=== PATIENT | male | born 1965 | race Caucasian/White ===

== ENCOUNTER 2019-07-17 11:52 | Outpatient (CLI) | payer MEDICAID, SELFPAY ==
--- NOTE | 2019-07-17 12:45 | USCV_ITS ---
Zuhair Ravi Age: 54 Gender: M : 1965 Exam Date: 07/17/2019 12:29 Ordering Phys: Kyra Nice Technologist: Mary Tobias Exam Location: [facility] – [place] Indication: CAROTID STENOSIS WITH LT SIDED PAIN IN NECK TO ARM Risk Factors: Unknown Previous Vascular Surgery: NONE ON CCAS [place] WITH 4 STENTS Right Brachial BP: / Left Brachial BP: / Right Left Velocity (cm/s) Spectral Plaque Velocity (cm/s) Spectral Plaque Syst/Diast Broadening Syst/Diast Broadening 109.20/28.70 Prox CCA 111.00/ 23.20 70.60/ 20.90 Mid CCA 65.30 / 16.10 Hetro 60.60/ 16.50 Distal CCA 60.50 / 12.90 66.80/ 24.90 Hetro Prox ICA 65.30 / 14.50 55.50/ 14.90 Mid ICA 66.90 / 19.30 78.70/ 28.40 Distal ICA 64.50 / 18.50 87.10 Hetro ECA 87.10 1.12 ICA/CCA 1.00 Antegrade Vertebral Antegrade 23.10/ 8.20 cm/s 27.40/ 10.50 cm/s Tri Subclavian Tri 80.90 122.8 0 FINDINGS Minimal to moderate heterogeneous plaques of the right bifurcation. Minimal plaques of the left bifurcation Antegrade flow in the vertebral arteries bilaterally Normal Doppler flow velocities in the external carotid arteries bilaterally CONCLUSIONS Minimal to moderate heterogeneous plaques of the right bifurcation. Minimal plaques of the left bifurcation. No significant stenosis, based on the above findings. Dr Susan Aquino MD FACC (Electronically Signed) Final Date: 18 July 2019 16:53 S
--- NOTE | 2019-07-17 13:30 | USCV_ITS ---
Ravi Moffett Age: 54 Gender: M : 1965 Exam Date: 07/17/2019 12:10 Ordering Phys: Kyra Nice Technologist: Mary Tobias [place]am [place] [facility] [place]ication: PRIOR [place] WITH 4 STENTS BP: / HR: 69 Rhythm: Sinus Technical Quality: Adequate MEASUREMENTS (Male / Female) Normal Values 2D ECHO LV Diastolic Diameter PLAX 4.5 cm 4.2 - 5.9 / 3.9 - 5.3 cm LV Systolic Diameter PLAX 3.0 cm LV Chamber Size 3.5 cm IVS Diastolic Thickness 1.1 cm 0.6 - 1.0 / 0.6 - 0.9 cm IVS Systolic Thickness 1.8 cm LVPW Diastolic Thickness 1.2 cm 0.6 - 1.0 / 0.6 - 0.9 cm LVPW Systolic Thickness 2.1 cm RV Chamber Size 2.6 cm LVOT Diameter 2.0 cm LV Ejection Fraction 2D Teich 61.4 % LV Ejection Fraction MOD 2C 61.6 % LV Ejection Fraction 2C AL 63.2 % LA Diameter 3.8 cm LA Width 3.8 cm LA Height 4.7 cm RA Width 3.0 cm RA Height 4.7 cm Aorta at Sinotubular Diameter 3.4 cm M-MODE LV Diastolic Diameter MM 4.7 cm 4.2 - 5.9 / 3.9 - 5.3 cm LV Systolic Diameter MM 3.5 cm LV Ejection Fraction MM Teich 52.6 % IVS Diastolic Thickness MM 1.1 cm 0.6 - 1.0 / 0.6 - 0.9 cm IVS Systolic Thickness MM 1.5 cm LVPW Diastolic Thickness MM 1.1 cm 0.6 - 1.0 / 0.6 - 0.9 cm LVPW Systolic Thickness MM 1.9 cm RV Diastolic Diameter MM 0.9 cm Aortic Annulus Diameter 3.8 cm LA Ao Ratio MM 1.0 MV E Point Septal Separation 0.7 cm DOPPLER AV Peak Velocity 134.0 cm/s LVOT Peak Velocity 129.0 cm/s AV Area Cont Eq vti 3.2 cm squared AV Area Cont Eq pk 3.1 cm squared MV Area PHT 8.1 cm squared Mitral E to A Ratio 0.9 MV E' Velocity 9.0 cm/s Mitral E to MV E' Ratio 9.5 Mitral E to LV E' Lateral Ratio 7.5 Mitral E to LV E' Septal Ratio 13.2 TR Peak Velocity 125.5 cm/s TR Peak Gradient 6.3 mmHg TR Mean Velocity 92.4 cm/s TR Mean Gradient 3.6 mmHg TR Velocity Time Integral 31.9 cm Right Atrial Pressure 3.0 mmHg Pulmonary Artery Systolic Pressu 9.3 mmHg PV Peak Velocity 80.0 cm/s RV Acceleration Time 0.1 s RV Ejection Time 0.3 s RV AcT/ET 0.3 FINDINGS Left Ventricle Normal left ventricular size and systolic function, EF 56 %. No regional wall motion abnormalities. Mild left ventricular hypertrophy. Grade I/IV diastolic dysfunction (abnormal relaxation filling pattern), normal to mildly elevated filling pressures. Right Ventricle Normal right ventricular size and systolic function. Right Atrium Normal right atrial size. Left Atrium Mildly increased left atrial size. Mitral Valve No gross abnormalities noted Aortic Valve No gross abnormalities Tricuspid Valve Structurally normal tricuspid valve. Pulmonic Valve No gross abnormalities noted Pericardium No pericardial effusion. Aorta Plaque seen in the ascending aorta. CONCLUSIONS Normal left ventricular size and systolic function, EF 56 %. No regional wall motion abnormalities. Mild left ventricular hypertrophy. Type I diastolic dysfunction. Mildly increased left atrial size. There is no pericardial effusion. There are no intracardiac masses. No previous study is available for comparison. Dr Susan Aquino MD FACC (Electronically Signed) Final Date: 17 July 2019 17:00 S
== END 2019-07-17 11:53 | disposition home or self-care (01) ==
LOC: RAD 11:53
PROVIDERS: Family Provider Nurse Practitioner Family; PCP Nurse Practitioner Family; Visit Provider Nurse Practitioner Family
DX: I65.29 Occlusion and stenosis of unspecified carotid artery (principal); I50.20 Unspecified systolic (congestive) heart failure
CPT/HCPCS: 93306; 93880

== ENCOUNTER → 2019-08-26 10:43 | Outpatient (BNVA) | payer MEDICARE, MEDICAID, SELFPAY | PROVIDERS: Family Provider Nurse Practitioner Family; PCP Nurse Practitioner Family; Visit Provider Urology | DX: R39.9 Unspecified symptoms and signs involving the genitourinary system (principal); N20.1 Calculus of ureter; N52.1 Erectile dysfunction due to diseases classified elsewhere; N40.1 Benign prostatic hyperplasia with lower urinary tract symptoms | CPT/HCPCS: 81001 ==

== ENCOUNTER 2022-08-06 18:52 | Inpatient (IN) | payer MEDICARE, MEDICAID, SELFPAY ==
[2022-08-06] VITALS (30 sets, daily range): BP systolic 120–183; BP diastolic 79–124; PULSE 75–109; RESP 13–188; TEMP 36.4; O2SAT 92–100; BMI 27.8; BMI 28.3
--- NOTE | 2022-08-06 18:56 | XRR_ITS ---
PROCEDURE INFORMATION: Exam: XR Chest Exam date and time: 08/06/2022 6:52 PM Age: 57 years old Clinical indication: Left-sided; Prior surgery; Surgery type: Cabg. Loop recorder; Patient HX: C/O left sided chest pain with st elevation. ; Additional info: Cp TECHNIQUE: Imaging protocol: Radiologic exam of the chest. Views: 1 view. COMPARISON: No relevant prior studies available. FINDINGS: Tubes, catheters and devices: Electronic recording device in the left chest wall. Lungs: Unremarkable. No consolidation. Pleural spaces: Unremarkable. No pleural effusion. No pneumothorax. Heart/Mediastinum: Unremarkable. No cardiomegaly. Bones/joints: Sternotomy changes with multiple fractured wires. XR/XR chest 1V portable [id number] IMPRESSION: No acute findings.
--- NOTE | 2022-08-06 18:56 | ECG_ITS ---
[facility] Test Date: 2022-08-06 Pat Name: Ravi Moffett Department: Room: ICU12 Gender: Male Delivery Assistant: : 1965 Requested By: Kamron Parker Order Number: [id number] Isa MD: Lucho Aguilar M.D. Measurements Intervals [place] Rate: 110 P: 52 VT: 172 QRS: 16 QRSD: 94 T: 89 QT: 345 QTc: 469 Interpretive Statements SINUS TACHYCARDIA PROBABLE INFERIOR MYOCARDIAL INFARCTION , OF INDETERMINATE AGE [35 ms Q WAVE IN II/aVF] MODERATE T-WAVE ABNORMALITY, CONSIDER LATERAL ISCHEMIA [-0.1+ mV T-WAVE IN I/aVL/V5/V6] INTERPRETATION BASED ON A DEFAULT AGE OF 40 YEARS No previous ECG available for comparison Electronically Signed On 08-07-2022 17:38:54 MEDICAL RECEPTIONIST by Lucho Aguilar M.D. [id number]
[2022-08-06] MEDS: clopidogrel 300 mg Tablet 600 MG PO (19:01)
--- NOTE | 2022-08-06 19:01 | XACV_ITS ---
Exam Room: .[facility] Ht: 180 cm Wt: 91 kg BSA: 2.15 m2 Gender: Male : 1965 Exam Priority: Routine Procedure(s): Procedure Description: Diagnostic procedure Procedure Description: PCI procedure Procedure Description: Drug Eluting Coronary Stent Procedure Description: PTCA Procedure Description: Miscellaneous Procedure Description: ACT Procedure Description: Coronary Angiography Diagnostic Cath Status: Emergency Diagnostic Findings * INDICATION: 57 year old male with past medical history of congestive heart failure, diabetes, CAD status post CABG in 2020 with CABG x4 has presented to hospital with 2 hours of severe substernal chest pain. He says chest pain is on the left side and radiates to the left arm. After receiving nitro his chest pain has improved somewhat. EKG changes are dynamic. Inferior leads with Q waves with borderline ST elevations and ST T wave changes in the anterior leads V1-V3 were noted. mechanical laboratory technician was activated because of typical, severe, ongoing symptoms and dynamic EKG changes consistent with unstable angina. * Left main artery: Patent. * LAD : Totally occluded in the mid segment. Diagonal artery is patent and has distal diffuse disease. * Left circumflex artery: Proximally has moderate 50 to 60% stenosis. Distal vessel has moderate diffuse disease but is patent. * RCA: Patent, has distal vessel 70-80% stenosis. * SVG to RCA: Occluded. * MORFIN to LAD: MORFIN is patent. At the anastamosis there is a severe 90% stenosis in nome LAD. [place] distal LAD is small caliber diffusely diseased vessel. * Coronary angiography shows right dominance. PCI Status: Emergency PCI Indication: Other Interventional Findings * Procedure details: We engaged MORFIN to LAD with 6 Tamazight SAMMY catheter. IV heparin was administered to maintain ACT above 250 S. 0.014 run-through guidewire was used to cross the stenotic area and was put in distal vessel. A second wire was put in the vessel for more support. We predilated the stenosis with 2.25 x 15 mm semicompliant balloon. This was followed by placement of 2.25 x 18 mm resolute Melinda drug-eluting stent. At this time we performed final angiogram that showed excellent stent expansion, and ETTA-3 flow. Guidewire and guide catheter were removed. Patient left the Cover Inspector in a stable condition and was chest pain-free.. Conclusions 1. Severe MORFIN to LAD anastomosis stenosis s/p successful revascularization with PENELOPE x1. Patient's chest pain resolved.. 2. Severe distal RCA stenosis. Will need staged revascularization as outpatient. Recommendations * Dual anti-platelet therapy with aspirin and Plavix for at least 1 year. * High intensity statin therapy. * Staged outpatient revascularization of distal RCA. * Outpatient cardiology follow-up in 2 to 4 weeks. Interventional RX Recommendation: PCI w/o planned CABG Diagnostic RX Recommendation: PCI w/o planned CABG Anticoagulation: Heparin Pressures Phase:Rest AO : 102 / 61 ( 81 ) @ 2:12:17 PM 122 / 77 ( 99 ) @ 2:12:17 PM 121 / 78 ( 99 ) @ 2:12:17 PM 116 / 78 ( 97 ) @ 2:12:17 PM 124 / 74 ( 96 ) @ 2:12:17 PM 112 / 71 ( 90 ) @ 2:12:17 PM Clinical Evaluation EBL: 5mL-10mL Procedural Details Procedure started. Pre-Procedure Time Out. Identified patient by full name and date of as verbalized by the patient/guarantor. Does the consent match the physician's order: N/A Emergent; Informed Consent not obtained due to time critical life threat. Accurate & Complete Informed Consent: N/A Emergent; Informed Consent not obtained due to time critical life threat. Inpatient/Outpatient History & Physical on Chart: N/A Emergent; Informed Consent not obtained due to time critical life threat. If H&P is completed, is and addenduem needed: N/A Emergent; Informed Consent not obtained due to time critical life threat; If yes, is the addendum complete: N/A Emergent; Informed Consent not obtained due to time critical life threat. Visualize and Verify Site with Patient/Guarantor: N/A. Relevant Radiology Images available: N/A. Pre-op teaching completed and patient verbalized understanding. The risks, benefits, and alternatives of sedation and/or procedure were discussed by physician. The patient agrees to continue. [facility] Clinical Fraility Score: 3: Managing Well. Cover Inspector Indications: ACS <= 24 hours. Chest Pain Symptom Assessment: Typical Angina Symptoms. Current diagnosis: NSTEMI. PERRLA. Strong, equal hand director of quality improvement bilaterally. Lungs clear x 5 lobes. IV Site on Arrival: 18 gauge in the right anticubital. IV Site on Arrival: 18 gauge in the left anticubital. IV Fluids: 0.9% NaCl at KVO. 0 mL infused prior to label printer. Pre Procedural Pulses: bilateral posterior tibial was 2+. Oxygen started at 2liters/min via nasal canula. right groin was prepped with chloroprep then draped in the usual sterile fashion. left groin was prepped with chloroprep then draped in the usual sterile fashion. Baseline sample Acquired. HR: 95 BPM. Physician notified. Physician arrived. Physician scrubbed in. Immediate Pre-Procedure Time Out. Correct Patient: Yes; Correct Procedure: Yes; Correct Site: Yes; Correct Patient Position: Yes; Correct Supplies: Yes; Dried Flammable Prep: Yes; Blood Products Available: N/A;. Lidocaine 1% infiltrated to the right groin. Arterial access obtained with micropuncture set. A 5 nauruan JL4 catheter in over wire. Multiple views taken of left coronary artery. Catheter removed over the exchange wire. A 5 nauruan JR4 catheter in over wire. Multiple views taken of right coronary artery. SVG's to Diaganol visualized and patent. SVG to RCA occluded. Catheter removed over the exchange wire. A 5 nauruan IM catheter in over wire. Admit Source: Emergency department. MORFIN to LAD visualized. Catheter removed over the exchange wire. Physician review of cine films. PCI Indication: NSTE. A 5 nauruan JR4 catheter in over wire. Catheter removed over the exchange wire. 6 nauruan IM guide catheter was inserted over the wire. Exchange wire removed. Runthrough guidewire was advanced through the guide catheter to lesion in the MORFIN. 2nd Runthrough guidewire was advanced through the guide catheter to lesion in the MORFIN to mid LAD. Balloon inserted to lesion in the mid LAD. Inflation number : 1 A AB TREK 2.25X15 RX BALLOON was prepped and advanced across the MORFIN -> Mid LAD , then inflated to 8 MAGALY for 0:15 seconds. Inflation number: 2 The AB TREK 2.25X15 RX BALLOON was reinflated across the MORFIN -> Mid LAD, to 8 MAGALY for 0:05 seconds. Results checked. Balloon out. Stent inserted to lesion in the mid LAD. Inflation Number : 3 A CHAAPRRO R MELINDA 2.25X18 PENELOPE -Lot Number# [id number] Exp 11/22/2023 was prepped and advanced across the MORFIN -> Mid LAD. The stent was deployed at 12 MAGALY for 0:16 seconds. Stent balloon out over wire. Results checked. 1st Runthrough wire removed. 2nd Runthrough wire removed. Results checked. Results checked. Guide catheter out. ACT drawn. Results 238 seconds. Therapeutic limits - pre-heparin administration 90-150 seconds and monitoring heparin during a vascular procedure >250 seconds. A Right femoral angiogram was performed to determine safe placement of closure device. A Suture was successful obtaining hemostatsis at the Right Femoral artery insertion site. Sheath(s) sutured into position with 2-0 silk and sterile 4x4's and Op-site applied over the site. No oozing or signs and symptoms of hematoma noted. Post Procedure: Pulses reassessed and unchanged. PERRLA. Strong, equal hand director of quality improvement bilaterally. No VTE prophylaxis required. Medication's Wasted: Nitro = 49.8 mg. Medication's Wasted: Other = Versed 1 mg. Medication's Wasted: Lidocaine 1% = 1 mL. Medication's Wasted: Other = Fentanyl 50 mcg. Total IV fluids: 68 mL. Post-op diagnosis: MORFIN to Mid LAD obstruction. Complications: none. Estimated blood loss: 5mL-10mL. Responsiveness - Normal response to verbal stimuli; alert and oriented, PERRLA. Airway - Unaffected, no intervention required; spontaneous ventilation. Circulation: W/N/L, pulses unchanged. Nausea/Vomiting: No. Procedure completed. Patient transferred by bed to ICU. Vital chart was stopped. Access Site Site: Right Femoral artery Sheath Size: 6 Fr Hemostasis Method: Suture Hemostasis Success: Successful Procedure Medications Start: 7:26 PM Stop: 7:26 PM Medication: Fentanyl Amount: 50 mcg Route: I.V. Start: 7:26 PM Stop: 7:26 PM Medication: Versed Amount: 1 mg Route: I.V. Start: 7:27 PM Stop: 7:27 PM Medication: Versed Amount: 1 mg Route: I.V. Start: 7:27 PM Stop: 7:27 PM Medication: Fentanyl Amount: 50 mcg Route: I.V. Start: 7:39 PM Stop: 7:39 PM Medication: Versed Amount: 1 mg Route: I.V. Start: 7:48 PM Stop: 7:48 PM Medication: Versed Amount: 1 mg Route: I.V. Start: 7:49 PM Stop: 7:49 PM Medication: Heparin Amount: 5000 units Route: I.V. Start: 8:03 PM Stop: 8:03 PM Medication: Fentanyl Amount: 50 mcg Route: I.V. Start: 8:03 PM Stop: 8:03 PM Medication: Versed Amount: 1 mg Route: I.V. Start: 8:04 PM Stop: 8:04 PM Medication: Nitrogylcerin Amount: 200 mcg Route: I.C. Start: 8:08 PM Stop: 8:08 PM Medication: Heparin Amount: 1000 units Route: I.V. I, the attending physician, have reviewed and verified all procedure medications. Yes, all medications given per verbal order Report Signatures Finalized by Lucho Aguilar MD on 08/12/2022 02:33 PM
[2022-08-06] MEDS: heparin 5,000 unit/mL INJ 1 mL 4000 UNIT IVP (19:04)
--- NOTE | 2022-08-06 19:04 | ED_ITS ---
HPI - Chest Pain General: Chief Complaint: Chest Pain Stated Complaint: STEMI Time Seen by Provider: 08/06/22 18:56 Source: patient and EMS Mode of arrival: EMS Limitations: no limitations History of Present Illness: 57-year-old male who has extensive history of cardiac disease states that 2 hours ago he start having chest pains or pressure type pain in the center of his chest been a 10 out of 10 and EMS arrived gave him nitro his pain is now down to a 2 out of 10 he received aspirin in route as well. STEMI alert was activated by EMS for concern of a STEMI on his EKG. Associated symptoms: Deny abdominal pain, dyspnea, fever(s), nausea or vomiting Review of Systems Const: Denies: fever(s), chills, body aches or change in appetite Eyes: Denies: blurry vision or eye discomfort ENMT: Denies: throat pain or dental pain Card: Reports: chest pain Resp: Denies: dyspnea GI: Denies: abdominal pain, nausea, vomiting or diarrhea : Denies: dysuria Musc: Denies: neck pain or back pain Skin/Breast: Denies: rash Neuro: Denies: headache(s) Psych: Denies: depression Griffin/Lymph: Denies: easy bruising All/Imm: Denies: urticaria PFSH ED PFSH: Medical History (Updated 08/06/22 @ 19:06 by Kamron Parker MD) BPH NOS w ur obs/LUTS CHF (congestive heart failure), NYHA class I LVEF 56%, grade 1 diastolic dysfunction 07/18/2019 Diabetes Erectile dysfunction due to diseases classified elsewhere Hypercholesterolemia Sleep apnea Surgical History H/O elbow surgery H/O hernia repair Social History Smoking and tobacco status: former smoker Alcohol intake: never Marital status: Single Current occupational status: employed Physical Exam Const: COMMON NORMALS: patient oriented x3 GENERAL APPEARANCE: ill appearing HENMT: COMMON NORMALS: normocephalic and atraumatic HEAD & SCALP: normocephalic and atraumatic Eye: COMMON NORMALS: Equal, round and reactive pupils present and EOMs intact bilaterally PUPIL: Yes Equal, round and reactive pupils present Neck/C-Spine: COMMON NORMALS: full ROM and supple Chest: COMMONS NORMALS: normal inspection of the chest and normal palpation of entire chest wall Resp: COMMON NORMALS: normal respiratory effort, No retractions, No use of accessory muscles and clear to auscultation bilaterally AUSCULTATION: clear to auscultation bilaterally Cardio: COMMON NORMALS: regular rate, regular rhythm and No murmurs present (Cardio) RATE: regular rate RHYTHM: regular rhythm GI: COMMON NORMALS: Normal to inspection, nondistended, normoactive bowel sounds present, Soft to palpation, non-tender and no masses PALPATION: Yes Soft to palpation Extremity: COMMON NORMALS: normal to inspection and full ROM Neuro: COMMON NORMALS: patient oriented x3, moves all extremities and no focal motor deficits Psych: COMMON NORMALS: mental status grossly normal, Normal thought process present and cooperative THOUGHT PROCESS: Normal thought process present Skin: COMMON NORMALS: no rashes or lesions noted and no wounds GENERAL SKIN EXAM: no rashes or lesions noted Course Vital Signs: Vital signs: Vital Signs Pulse Rate 109 H 08/06/22 18:53 Respiratory Rate 16 08/06/22 18:53 Blood Pressure 160/124 08/06/22 18:53 Pulse Oximetry 100 08/06/22 18:53 Oxygen Delivery Me thod 08/06/22 18:53 MDM - Chest Pain Medical Decision Making Patient presents here with chest pain EKG findings concerning for possible STEMI Dr. Fisher is reviewed the EKG and will take him to the [facility] at this point we will give patient heparin and Plavix his pain is resolved currently. Lab Data 08/06/22 18:54 08/06/22 18:54 Critical Care Time Critical Care Time: Critical Care Time: Yes Total Critical Care Time: 35 Attestation: The high probability of a clinically significant, sudden or life threatening deterioration of the patient's cv system(s) required my full and direct attention, intervention and personal management. The critical care time is as shown. This time is in addition to time spent performing any reported procedures but includes the following: [x] Data and vital sign review and interpretation [x] Patient assessment, examination and intervention [x] Documentation [x] Medication orders and management Discharge Plan Discharge Patient Disposition: Admitted As Inpatient Clinical Impression: ST elevation myocardial infarction (STEMI) Condition: Stable Prescriptions: No Action sildenafil 100 mg tablet 100 mg PO DAILY PRN (Reason: sexual activity) Qty: 20 12RF Rx Instructions: 1 hour before intercourse on empty stomach. NO NITROGLYCERIN! zonisamide [Zonegran] 100 mg capsule 100 mg PO .4 Rx Instructions: 4 daily with supper montelukast 10 mg tablet 10 mg PO DAILY amlodipine 5 mg tablet 5 mg PO DAILY Proair Digihaler 90 mcg/actuation aero powdr breath act w/sensor 2 inh INHALATION QID clonidine HCl 0.1 mg tablet 0.1 mg PO BID 90 Days Qty: 180 3RF atorvastatin 40 mg tablet 40 mg PO .HS 90 Days Qty: 90 3RF carvedilol 25 mg tablet See Rx Instructions .ROUTE .COMPLEX Qty: 180 2RF Dose Instruction: TAKE 1 TABLET BY MOUTH TWICE DAILY Rx Instructions: TAKE 1 TABLET BY MOUTH TWICE DAILY valsartan-hydrochlorothiazide 160-25 mg tablet 1.5 tab PO DAILY Qty: 135 0RF tamsulosin 0.4 mg capsule See Rx Instructions .ROUTE .COMPLEX Qty: 30 2RF Dose Instruction: TAKE 1 CAPSULE BY MOUTH EVERY DAY Rx Instructions: TAKE 1 CAPSULE BY MOUTH EVERY DAY Referrals: Arina Joseph FNP [Primary Care Provider] - Coding Level of Care Code ED Bioinformatics Assistant for Traci Jones
[2022-08-06 19:11] LABS: Basophils # 0.1 10^3/uL (0.0-0.1); Basophils % 0.6 %; Eosinophils # 0.3 10^3/uL (0.0-0.8); Eosinophils % 4.2 %; Hematocrit 47.4 % (42.0-52.0); Hemoglobin 15.9 g/dL (11.7-16.6); Lymphocytes # 1.6 10^3/uL (0.8-4.8); Lymphocytes % 20.2 %; Mean Corpuscular HGB Conc 33.5 g/dL (30.0-36.0); Mean Corpuscular Hemoglobin 29.2 pg (28.0-34.0); Mean Corpuscular Volume 87.1 fl (80-94); Mean Platelet Volume 10.2 fL (7.4-10.4); Monocytes # 0.5 10^3/uL (0.2-0.9); Monocytes % 6.2 %; Neutrophils # 5.31 10^3/uL (1.8-7.7); Neutrophils % 68.2 %; Nucleated Red Blood Cells % 0 %; Platelet Count 194 10^3/cmm (130-400); Red Blood Count 5.44 10^6/uL (4.1-5.3); Red Cell Distribution Width 13.8 % (12.1-15.1); White Blood Count 7.8 10^3/uL (4.0-10.0)
--- NOTE | 2022-08-06 19:13 | P.HP_ITS ---
Providers/Chief Complaint Admitting Physician: Lucho Aguilar MD/ Cardiology Primary Care Provider: CARLOZ Mcginnis Chief Complaint: Chest pain History of Present Illness Ravi Moffett is a 57 year old male with past medical history of congestive heart failure, diabetes, CAD status post CABG in 2020 with CABG x4 has presented to hospital with 2 hours of severe substernal chest pain. He says chest pain is on the left side and radiates to the left arm. After receiving nitro his chest pain has improved somewhat. EKG changes are dynamic. Inferior leads with Q waves with borderline ST elevations and ST T wave changes in the anterior leads V1-V3 were noted. soap slabber was activated because of typical, severe, ongoing symptoms and dynamic EKG changes Review of Systems Narrative: CONSTITUTIONAL: No fever chills weight loss or gain or night sweats. [] HEENT: Normocephalic, atraumatic.[] RESPIRATORY: No cough, sputum, hemoptysis or wheezing.[] CARDIOVASCULAR: Has chest pain GI: no nausea vomiting diarrhea. [] PERFORATOR: No numbness, tingling, weakness or loss of function in any part of the body. [] MUSCULOSKELETAL: No knee or joint pain or rashes. [] Medications/Allergies Home Medications Medication Instructions Recorded Confirmed Last Taken Type albuterol sulfate 90 mcg/actuation 2 inh inhalation QID 06/22/19 08/26/19 Unknown History breath activated powder inhaler,sensor (Proair Digihaler) amlodipine 5 mg tablet 5 mg PO DAILY 06/22/19 08/26/19 Unknown History montelukast 10 mg tablet 10 mg PO DAILY 06/22/19 08/27/19 Unknown History zonisamide 100 mg capsule 100 mg PO .4 06/22/19 08/27/19 Unknown History (Zonegran) sildenafil 100 mg tablet 100 mg PO DAILY PRN sexual 08/26/19 08/27/19 Unknown Rx activity #20 tabs atorvastatin 40 mg tablet 40 mg PO .HS 90 days #90 tabs 10/01/19 Unknown Rx clonidine HCl 0.1 mg tablet 0.1 mg PO BID 90 days #180 tabs 10/01/19 Unknown Rx carvedilol 25 mg tablet See Rx Instructions .Route 05/23/20 Unknown Rx .COMPLEX #180 tabs valsartan 160 1.5 tab PO DAILY #135 tabs 06/20/20 Unknown Rx mg-hydrochlorothiazide 25 mg tablet tamsulosin 0.4 mg capsule See Rx Instructions .Route 12/21/20 Unknown Rx .COMPLEX #30 caps Allergies Allergy/AdvReac Type Severity Reaction Status Date / Time ciprofloxacin [From Cipro] Allergy nausea Verified 08/06/22 18:57 hydroxyzine Allergy rash Verified 08/06/22 18:57 propoxyphene [From Darvon] Allergy hives Verified 08/06/22 18:57 PFSH Acute PFSH: Medical History (Updated 08/06/22 @ 19:21 by Lucho Aguilar M.D) BPH NOS w ur obs/LUTS CHF (congestive heart failure), NYHA class I LVEF 56%, grade 1 diastolic dysfunction 07/18/2019 Diabetes Erectile dysfunction due to diseases classified elsewhere Hypercholesterolemia Sleep apnea Surgical History H/O elbow surgery H/O hernia repair Social History Smoking and tobacco status: former smoker Alcohol intake: never Marital status: Single Current occupational status: employed Vitals/I&O/Wt Last Vital Signs Pulse 109 H 08/06/22 18:53 Resp 16 08/06/22 18:53 BP 160/124 08/06/22 18:53 Pulse Ox 100 08/06/22 18:53 O2 Del Method 08/06/22 18:53 Weight last 48 hrs Weight 200 lb Physical Exam Narrative: GENERAL: Patient is alert, awake and oriented x3. [] NECK: No jugular vein distension. [] HEENT: No cyanosis. No icterus. No pallor. [] HEART: Regular S1 and S2. No murmur, rub or gallop. [] LUNGS: Clear to auscultate bilaterally. [] CENTRAL NERVOUS SYSTEM: Grossly nonfocal. [] EXTREMITIES: Lower extremities with no edema. Left foot has redness and swelling on the dorsum. 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 Also has dynamic EKG changes. Plan for emergent cardiac catheterization with possible PCI. Risks and benefits of the procedure were discussed with the patient. Continue aspirin and Plavix. We will order echocardiogram. We will consult medicine team for management of medical issues/diabetes and foot swelling. Attestations Medical Necessity Statement*: Care expected to cross 2 midnights. Patient has typical chest pain and dynamic EKG changes and features consistent with high risk NSTEMI. Coding Level of Care Code Acute Code for [facility] Diagnoses NSTEMI (non-ST elevated myocardial infarction) I21.4 Coronary artery disease I25.10 Left-sided cerebrovascular accident (CVA) I63.9 Status post ablation of ventricular arrhythmia Z98.890; Z86.79 CHF (congestive heart failure), NYHA class I I50.22 Congestive heart failure chronicity: chronic Congestive heart failure type: systolic Diabetes E11.9 Diabetes mellitus complication status: without complication Diabetes mellitus retirement insulin use: without retirement use Diabetes mellitus type: type 2 Hypercholesterolemia E78.00
[2022-08-06 19:17] LABS: D Dimer 0.42 ug/mIFEU (0-0.59)
[2022-08-06 19:23] LABS: Troponin(5th) Baseline 19 ng/L (0-15)
[2022-08-06 19:32] LABS: Alanine Aminotransferase 26 U/L (0-41); Albumin Level 4.4 g/dL (3.5-5.2); Alkaline Phosphatase 75 U/L (40-130); Anion Gap 17.6 (5-19); Aspartate Amino Transferase 28 U/L (0-40); Blood Urea Nitrogen 9 mg/dL (6-20); Calcium 9.5 mg/dL (8.5-10.5); Carbon Dioxide 25 mmol/L (22-29); Chloride 93 mmol/L (98-107); Creatinine Clr Calc Pharmacy 79.2042; Globulin 2.7 g/dL (1.3-4.6); Glomerular Filtration Rate 62.6 mL/min (90-130); Glucose 196 mg/dL (65-115); Lipase 42 U/L (13-60); NT Pro B Type Natriuretic Pept 248 pg/mL (0-125); Osmolality Calculated 278 mOsm/kg (285-295); Potassium 3.6 mmol/L (3.5-5.1); Sodium 132 mmol/L (136-145); Total Bilirubin 0.6 mg/dL (0.15-1.2); Total Protein 7.1 g/dL (6.6-8.7)
--- NOTE | 2022-08-06 20:31 | USCV_ITS ---
Ravi Moffett Age: 57 Gender: M : 1965 Exam Date: 08/06/2022 20:52 Ordering Phys: Lucho Aguilar M.D ([email or web address]) Technologist: VIRY Exam Location: [facility] – [place] Indication: chest pain tonight. post ME. post cardiac cath tonight. BP: 133 / 79 HR: 89 Rhythm: Sinus Technical Quality: Adequate MEASUREMENTS (Male / Female) Normal Values 2D ECHO LV Diastolic Diameter PLAX 3.7 cm 4.2 - 5.9 / 3.9 - 5.3 cm LV Systolic Diameter PLAX 2.3 cm IVS Diastolic Thickness 1.5 cm 0.6 - 1.0 / 0.6 - 0.9 cm IVS Systolic Thickness 2.6 cm LVPW Diastolic Thickness 1.1 cm 0.6 - 1.0 / 0.6 - 0.9 cm LVPW Systolic Thickness 1.6 cm LVOT Diameter 1.8 cm LV Ejection Fraction 2D Teich 70.2 % LV Ejection Fraction MOD 2C 56.7 % LV Ejection Fraction 2C AL 57.8 % LA Diameter 3.7 cm LA Width 3.7 cm LA Height 5.4 cm RA Width 2.7 cm RA Height 5.1 cm Aorta at Sinotubular Diameter 3.4 cm IVC Diameter 1.4 cm M-MODE Aortic Annulus Diameter 3.0 cm LA Ao Ratio MM 1.3 MV E Point Septal Separation 0.6 cm DOPPLER AV Peak Velocity 109.0 cm/s LVOT Peak Velocity 86.0 cm/s AV Area Cont Eq vti 1.7 cm squared AV Area Cont Eq pk 2.0 cm squared MV Area PHT 5.0 cm squared Mitral E to A Ratio 0.7 MV E' Velocity 50.0 cm/s TV Peak E Velocity 60.0 cm/s PV Peak Velocity 101.0 cm/s RV Acceleration Time 0.1 s RV Ejection Time 0.3 s RV AcT/ET 0.4 FINDINGS Left Ventricle Left ventricle is normal in size. LV systolic function is normal with EF of 55-60%. No regional wall motion abnormalities are seen. Grade 1 diastolic dysfunction Right Ventricle Normal in size and function Right Atrium Normal in size Left Atrium Normal in size Mitral Valve Structurally normal mitral valve. No significant regurgitation. Aortic Valve Grossly normal. No significant stenosis or regurgitation. Tricuspid Valve Trace tricuspid regurgitation. Insufficient TR jet to calculate RVSP Pulmonic Valve Not well visualized Pericardium Normal Aorta Normal in size IVC Appears to be normal CONCLUSIONS LV systolic function is normal with EF of 55-60% Grade 1 diastolic dysfunction Trace tricuspid regurgitation Compared to prior echocardiogram from 2019, no significant changes are noted. Lucho Aguilar MD (Electronically Signed) Final Date: 07 August 2022 09:11 S
--- NOTE | 2022-08-06 20:47 | P.CONIM_ITS ---
Providers/Reason For Consult Consulting Physician/Specialty*: Dr. Harden/internal medicine Reason for Consult*: Medical comorbidities Requesting Physician: Dr. Fisher Attending Physician: Amol Hadren MD Primary Care Provider: CARLOZ Mcginnis History of Present Illness History of Present Illness Ravi Moffett is a 57 year old male with past medical history of type 2 diabetes mellitus on weekly Ozempic with last dose on Friday 08/04, CAD post CABG, left-sided CVA, NYHA class I diastolic CHF presented to the ER today with ongoing chest pain for 2 hours and was taken to Extrusion Die Coordinator with concerns for dynamic changes on the EKG. Patient underwent PCI to LAD(complete cath report not available to me currently). Hospital services consulted for medical comorbidities along with redness and pain on left great toe and second toe. Patient states pain in the foot started couple of hours prior to chest pain today. Denies of having any trauma or pain in the last few days. Denies any similar complaints in the past. Patient seen in the ICU, lying comfortably with chest pain 2/10 with heart rate at 82 bpm and blood pressure 150/90 saturating well on room air. Review of Systems General: Reports: 10 or more systems reviewed and unremarkable except in HPI and below Const: Denies: fever(s), chills, body aches, change in appetite, change in weight, malaise, night sweats, diaphoresis, change in sleep pattern, daytime sleepiness or snoring Eyes: Denies: change in vision, blurry vision, photophobia, eye discomfort or eye discharge ENMT: Denies: throat pain, enlarged tonsils, hoarseness, mouth pain, oral sores, dry mouth, tinnitus, nasal congestion or post nasal drip Card: Denies: chest pain, palpitations, irregular heart rhythm, edema, swelling of feet/ankles, lightheadedness, syncope, pre-syncope, dyspnea on exertion, orthopnea, leg pain with exertion or acrocyanosis Resp: Denies: dyspnea, productive cough, non-productive cough, wheezing, stridor, pain on inspiration, change in phlegm color, hemoptysis or chest congestion GI: Denies: abdominal pain, nausea, vomiting, hematemesis, coffee ground emesis, dysphagia, heartburn, diarrhea, constipation, bloating, GI cramping, change in bowel habits, pain on defecation, hematochezia or melena : Denies: flank pain, difficulty urinating, dysuria, urinary frequency, urinary urgency, urinary hesitancy, urinary dribbling, difficulty starting urination, change in urine stream, nocturia or hematuria Musc: Denies: neck pain, back pain, extremity pain, joint pain, joint swelling, joint redness, joint stiffness or limited range of motion Neuro: Denies: headache(s), numbness in extremities, weakness in extremities, sensory changes, lack of coordination, difficulty walking, frequent falls, dizziness, vertigo, confusion, Slurred speech present, difficulty communicating thoughts or seizure-like activity Psych: Denies: anxiety, depression, mood swings, panic attacks, hopelessness or irritability Endo: Denies: polyuria, polydipsia, tired all the time, cold intolerance, excessive sweating, flushing or heat intolerance Griffin/Lymph: Denies: easy bruising or easy bleeding All/Imm: Denies: tongue swelling, facial swelling or acute wheezing Medications/Allergies Home Medications Medication Instructions Recorded Confirmed Last Taken Type albuterol sulfate 90 mcg/actuation 2 inh inhalation QID 06/22/19 08/26/19 Unknown History breath activated powder inhaler,sensor (Proair Digihaler) amlodipine 5 mg tablet 5 mg PO DAILY 06/22/19 08/26/19 Unknown History montelukast 10 mg tablet 10 mg PO DAILY 06/22/19 08/27/19 Unknown History zonisamide 100 mg capsule 100 mg PO .4 06/22/19 08/27/19 Unknown History (Zonegran) sildenafil 100 mg tablet 100 mg PO DAILY PRN sexual 08/26/19 08/27/19 Unknown Rx activity #20 tabs atorvastatin 40 mg tablet 40 mg PO .HS 90 days #90 tabs 10/01/19 Unknown Rx clonidine HCl 0.1 mg tablet 0.1 mg PO BID 90 days #180 tabs 10/01/19 Unknown Rx carvedilol 25 mg tablet See Rx Instructions .Route 05/23/20 Unknown Rx .COMPLEX #180 tabs valsartan 160 1.5 tab PO DAILY #135 tabs 06/20/20 Unknown Rx mg-hydrochlorothiazide 25 mg tablet tamsulosin 0.4 mg capsule See Rx Instructions .Route 12/21/20 Unknown Rx .COMPLEX #30 caps Allergies Allergy/AdvReac Type Severity Reaction Status Date / Time ciprofloxacin [From Cipro] Allergy nausea Verified 08/06/22 18:57 hydroxyzine Allergy rash Verified 08/06/22 18:57 propoxyphene [From Darvon] Allergy hives Verified 08/06/22 18:57 PFSH Acute PFSH: Medical History (Updated 08/06/22 @ 23:55 by Amol Harden MD) Arthritis or polyarthritis, rheumatoid BPH NOS w ur obs/LUTS CHF (congestive heart failure), NYHA class I LVEF 56%, grade 1 diastolic dysfunction 07/18/2019 Diabetes Erectile dysfunction due to diseases classified elsewhere Hypercholesterolemia Nocturia Sleep apnea Surgical History (Updated 08/06/22 @ 23:55 by Amol Harden MD) H/O elbow surgery H/O hernia repair S/P alvin Social History Smoking and tobacco status: former smoker Alcohol intake: never Marital status: Single Current occupational status: employed Vitals/I&O/Wt Last Vital Signs Pulse 102 H 08/06/22 19:10 Resp 16 08/06/22 19:00 BP 154/102 08/06/22 19:10 Pulse Ox 98 08/06/22 19:10 O2 Del Method 08/06/22 19:10 Weight last 48 hrs Weight 90.718 kg Physical Exam Narrative: General: No acute distress, AO x3 HEENT: PERRLA, pupils bilaterally equal and reactive Chest: Normal vesicular breath sounds, no added sounds, equal good air entry bilaterally CVS: S1-S2 regular, no murmurs, no tachycardia, no gallops, no rubs Abdomen: Soft, nontender, no organomegaly, bowel sounds present Neuro: No focal deficits, no facial deformity, AO x3, power 5/5 in all limbs Extremities: Bilateral pulses feeble but dopplerable, feet warm, tenderness and redness at base of great toe and second toe on left feet, no open wounds or blisters Data 08/06/22 18:54 08/06/22 18:54 A&P Assessment and plan (1) NSTEMI (non-ST elevated myocardial infarction): Post PCI. Extrusion Die Coordinator report not available currently. Currently chest pain-free. Continue aspirin, statin, Plavix, home dose of beta-aldo. Echocardiogram has been ordered. Treatment as per primary team. (2) Coronary artery disease: Post CABG (3) CHF (congestive heart failure), NYHA class I: Last echocardiogram shows EF of 55% with grade 1 diastolic dysfunction. We will follow-up repeat echocardiogram. Currently in no exacerbation. Qualifiers: Congestive heart failure type: systolic Congestive heart failure chronicity: chronic Qualified Code(s): I50.22 - Chronic systolic (congestive) heart failure (4) Hypercholesterolemia: Check lipid panel. Continue home dose of statin. (5) Diabetes: Takes Ozempic at home. Last dose on 08/04. Check A1c. Low-dose insulin sliding scale before meals and at bedtime. Carb consistent cardiac diet. 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 Can be secondary to gout but given history of CAD we will have to rule out PAD and ischemia. Arterial duplex. Frequent neurovascular checks. Check uric acid. For now empirically start patient on Zosyn day very low likelihood of cellulitis. Can discontinue antibiotics within next 24 hours if patient remains hemodynamically stable, afebrile without leukocytosis. Plan Hypertension: Goal blood pressure less than 140/90 mmHg. Continue with home dose of carvedilol, clonidine. Depending on the BMP can restart home dose of valsartan within next 24 hours. Care discussed in detail with RN at bedside. Thank you for involving us in care of Mr. Moffett. We will continue to follow. Consult Attestations Medical Necessity Statement: As per primary team. and Moderate Time for a total of 60 minutes, includes reviewing past or interval history, examining/interviewing patient, placing orders, counseling patient/family/other support, updating patient/family/other support, discussing plan of care with staff, communicating with other healthcare providers, documenting encounter and coordinating care Diagnoses NSTEMI (non-ST elevated myocardial infarction) I21.4 Coronary artery disease I25.10 CHF (congestive heart failure), NYHA class I I50.22 Congestive heart failure type: systolic Congestive heart failure chronicity: chronic Hypercholesterolemia E78.00 Diabetes E11.9 Diabetes mellitus type: type 2 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
--- NOTE | 2022-08-06 20:54 | USCV_ITS ---
Ravi Moffett Age: 57 Gender: M : 1965 Exam Date: 08/06/2022 21:49 Ordering Phys: Amol Harden MD Technologist: VIRY Exam Location: [facility] – [place] Indication: prior LE DVTs, last 2018. No history of pulmonary embolus per patient. HISTORY: prior LE DVTs, last 2018. No history of pulmonary embolus per patient. PROCEDURES: Venous duplex imaging was performed in bilateral lower extremities. FINDINGS: Normal 2-D Doppler and augmentation and compressibility throughout the lower extremity venous structures. Additional imaging through the proximal calf veins also reveals no thrombus. Limited evaluation of the greater saphenous vein is patent with no thrombus. CONCLUSIONS No DVT bilateral lower extremities. Dr. Elsy Valladares DO (Electronically Signed) Final Date: 07 August 2022 07:47 S
[2022-08-06 21:27] LABS: Glucose Point of Care 214 mg/dL (70-110)
[2022-08-06] MEDS: insulin lispro 100 unit/1 mL SUBCUT (21:30)
[2022-08-06] MEDS: sodium chloride 0.9% 1,000 ML 100 ML IV (21:31)
[2022-08-06] MEDS: metoprolol tartrate 50 mg Tablet PO (21:31)
[2022-08-06] MEDS: atorvastatin 40 mg Tablet 80 MG PO (21:31)
[2022-08-06] MEDS: piperacillin-tazobactam 3.375 GM in sodium chloride 0.9% (plus) 50 ML IV (22:55)
[2022-08-06 23:06] LABS: Troponin 5 2HR 18.08 ng/L (0-15)
[2022-08-06 23:13] LABS: Troponin 5 2HR Delta -0.92 ABS# (0-10)
[2022-08-06 23:36] LABS: Thyroid Stimulating Hormone 1.54 uIU/mL (0.27-4.20)
[2022-08-06 23:51] LABS: Iron 91 ug/dL (59-158); Percent Saturation 25.9 % (20-50); Total Iron Binding Capacity 351 mcg/dl; Unsaturated Iron Binding 260 ug/dL (112-347)
[2022-08-07] VITALS (128 sets, daily range): BP systolic 112–177; BP diastolic 67–115; PULSE 70–92; RESP 0–31; TEMP 36.4; O2SAT 93–100
[2022-08-07 00:06] LABS: Vitamin B12 499 pg/mL (232-1245)
[2022-08-07 00:09] LABS: Folate Level 6.9 ng/mL (4.5-32.2)
[2022-08-07 00:54] LABS: Uric Acid 4.5 mg/dL (3.4-7.0)
[2022-08-07 01:11] LABS: Basophils % 0.5 %; Eosinophils # 0.2 10^3/uL (0.0-0.8); Eosinophils % 3.7 %; Hematocrit 41.2 % (42.0-52.0); Lymphocytes # 1.4 10^3/uL (0.8-4.8); Lymphocytes % 22.4 %; Mean Corpuscular Hemoglobin 29.5 pg (28.0-34.0); Mean Corpuscular Volume 86.9 fl (80-94); Monocytes # 0.4 10^3/uL (0.2-0.9); Monocytes % 6.5 %; Neutrophils # 4.07 10^3/uL (1.8-7.7); Neutrophils % 66.2 %; Nucleated Red Blood Cells % 0 %; Platelet Count 163 10^3/cmm (130-400); Red Blood Count 4.74 10^6/uL (4.1-5.3); Red Cell Distribution Width 13.8 % (12.1-15.1); White Blood Count 6.2 10^3/uL (4.0-10.0)
[2022-08-07 01:38] LABS: Partial Thromboplastin Time 37.9 SECONDS (23.9-36.7); Troponin 5 6HR 20.99 ng/L (0-15)
[2022-08-07 01:39] LABS: Troponin 5 6HR Delta 1.99 ng/L (0-12)
[2022-08-07 01:42] LABS: Alanine Aminotransferase 20 U/L (0-41); Albumin Level 3.7 g/dL (3.5-5.2); Alkaline Phosphatase 59 U/L (40-130); Anion Gap 13.5 (5-19); Aspartate Amino Transferase 20 U/L (0-40); Blood Urea Nitrogen 8 mg/dL (6-20); Calcium 8.6 mg/dL (8.5-10.5); Carbon Dioxide 26 mmol/L (22-29); Chloride 101 mmol/L (98-107); Chol HDL Ratio 4.85 mg/dL (1.0-5.00); Cholesterol 131 mg/dL (0-200); Glomerular Filtration Rate 62.6 mL/min (90-130); Glucose 168 mg/dL (65-115); HDL Cholesterol 27 mg/dL (60-100); LDL Cholesterol Calculated 50 mg/dL (50-129); Osmolality Calculated 286 mOsm/kg (285-295); Potassium 3.5 mmol/L (3.5-5.1); Sodium 137 mmol/L (136-145); Total Bilirubin 0.4 mg/dL (0.15-1.2); Total Protein 5.7 g/dL (6.6-8.7); Triglycerides 270 mg/dL (0-150); VLDL Cholestrol Calculation 54 mg/dL (0-30)
[2022-08-07 01:44] LABS: Estmated Average Glucose 146; Hemoglobin A1C 6.7 % (4.0-6.0)
[2022-08-07 02:06] LABS: Influenza A by IFA negative (Negative); Influenza B by IFA negative (Negative)
[2022-08-07 03:23] LABS: Adenovirus Not Detected (NOT DETECT); Chlamydia Pneumoniae Not Detected (NOT DETECT); Coronavirus 229E,HKU1,NL63,OC4 Not Detected (NOT DETECT); Human Metapneumovirus Not Detected (NOT DETECT); Human Rhinovirus/Enterovirus Not Detected (NOT DETECT); Influenza A Not Detected (NOT DETECT); Influenza A H1 Not Detected (NOT DETECT); Influenza A H1-2009 Not Detected (NOT DETECT); Influenza A H3 Not Detected (NOT DETECT); Influenza B Not Detected (NOT DETECT); Mycoplasma Pneumoniae Not Detected (NOT DETECT); Parainfluenza Virus Type 1 Not Detected (NOT DETECT); Parainfluenza Virus Type 2 Not Detected (NOT DETECT); Parainfluenza Virus Type 3 Not Detected (NOT DETECT); Parainfluenza Virus Type 4 Not Detected (NOT DETECT); Respiratory Syncytial Virus A Not Detected (NOT DETECT); Respiratory Syncytial Virus B Not Detected (NOT DETECT); SARS-COV-2 Not Detected (NOT DETECT)
[2022-08-07] MEDS: piperacillin-tazobactam 3.375 GM in sodium chloride 0.9% (plus) 50 ML IV ×3 (06:42→22:28)
[2022-08-07] MEDS: sodium chloride 0.9% 1,000 ML 100 ML IV (06:43)
[2022-08-07] MEDS: amlodipine 10 mg Tablet PO (07:46)
[2022-08-07 07:53] LABS: Glucose Point of Care 186 mg/dL (70-110)
[2022-08-07] MEDS: zonisamide 100 MG Capsule PO (08:27)
[2022-08-07] MEDS: tamsulosin 0.4 mg Capsule PO (08:27)
[2022-08-07] MEDS: carvedilol 25 mg Tablet PO ×2 (08:27→17:19)
[2022-08-07] MEDS: insulin lispro 100 unit/1 mL SUBCUT ×3 (08:28→17:19)
[2022-08-07] MEDS: clopidogrel 75 mg Tablet PO (08:28)
[2022-08-07] MEDS: aspirin 81 mg EC Tablet PO (08:28)
[2022-08-07 11:17] LABS: Glucose Point of Care 176 mg/dL (70-110)
--- NOTE | 2022-08-07 12:37 | P.PN_ITS ---
Subjective Subjective: Patient underwent coronary angiogram last night that showed severe stenosis of MORFIN to LAD anastamosis with PENELOPE x 1, SVG to RCA is occluded, SVG to diagonal artery is patent. [place] LCx is patent, distal RCA has a severe 70% stenosis. He is chest pain free at this time. Vitals/I&O/Wt Last Vital Signs Temp 97.6 F 08/07/22 10:00 Pulse 85 08/07/22 11:16 Resp 16 08/07/22 11:16 BP 120/79 08/07/22 11:16 Pulse Ox 93 08/07/22 11:16 O2 Del Method 08/07/22 11:16 08/06/22 08/07/22 08/07/22 22:59 06:59 14:59 Intake Total 970 / 970 50 / 50 Output Total 600 / 600 1000 / 1600 700 / 700 Balance -600 / -600 -30 / -630 -650 / -650 Weight last 48 hrs Weight 203 lb 8 oz Weight 200 lb Physical Exam Narrative: GENERAL: Patient is alert, awake and oriented x3. [] NECK: No jugular vein distension. [] HEENT: No cyanosis. No icterus. No pallor. [] HEART: Regular S1 and S2. No murmur, rub or gallop. [] LUNGS: Clear to auscultate bilaterally. [] CENTRAL NERVOUS SYSTEM: Grossly nonfocal. [] EXTREMITIES: Lower extremities with no edema. Left foot has redness and swelling on the dorsum. Data 08/07/22 00:50 08/07/22 00:50 Micro: Microbiology 08/06/22 22:36 Blood Culture - Preliminary Blood SPECIMEN COLLECTED 08/06/22 22:34 Blood Culture - Preliminary Blood SPECIMEN COLLECTED A&P Assessment and plan (1) Coronary artery disease: (2) Left-sided cerebrovascular accident (CVA): (3) Status post ablation of ventricular arrhythmia: (4) CHF (congestive heart failure), NYHA class I: Qualifiers: Congestive heart failure type: systolic Congestive heart failure chronicity: chronic Qualified Code(s): I50.22 - Chronic systolic (congestive) heart failure (5) Diabetes: Qualifiers: Diabetes mellitus type: type 2 Diabetes mellitus senior living insulin use: without senior living use Diabetes mellitus complication status: without complication Qualified Code(s): E11.9 - Type 2 diabetes mellitus without complications (6) Hypercholesterolemia: (7) Unstable angina: Plan Patient is chest pain free. He had presented with typical chest pain, dynamic EKG changes. Troponins did not trend up. Findings consistent with unstable angina. Had successful PCI of MORFIN to LAD. Continue aspirin and Plavix. ECHO shows normal LV systolic function is normal Hospitalist team assisting with treatment of medical issues. Appreciate Recommendations Attestations Medical Necessity Statement*: Care expected to cross 2 midnights. 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
--- NOTE | 2022-08-07 12:53 | PM.PN ---
Subjective Subjective: Patient was seen this morning, at bedside, he does tell me that he had 1 episode of chest pain early in the morning, when his blood pressure was elevated, he has received his blood pressure medications, chest pain has resolved, he does report history of diabetes, is on a Ozempic, here his A1c is 6.7, he has hypertriglyceridemia, low HDL, tells me his blood pressure is controlled as outpatient Vitals/I&O/Wt Last Vital Signs Temp 97.6 F 08/07/22 10:00 Pulse 85 08/07/22 11:16 Resp 16 08/07/22 11:16 BP 120/79 08/07/22 11:16 Pulse Ox 93 08/07/22 11:16 O2 Del Method 08/07/22 11:16 08/06/22 08/07/22 08/07/22 22:59 06:59 14:59 Intake Total 970 / 970 50 / 50 Output Total 600 / 600 1000 / 1600 700 / 700 Balance -600 / -600 -30 / -630 -650 / -650 Weight last 48 hrs Weight 92.306 kg Weight 90.718 kg Physical Exam Const: COMMON NORMALS: no acute distress and patient oriented x3 Resp: COMMON NORMALS: normal respiratory effort, No retractions, No use of accessory muscles and clear to auscultation bilaterally AUSCULTATION: clear to auscultation bilaterally Cardio: COMMON NORMALS: regular rate, regular rhythm, S1 normal heart sound present and S2 normal heart sound present RATE: regular rate RHYTHM: regular rhythm HEART SOUNDS: S1 normal heart sound present and S2 normal heart sound present GI: COMMON NORMALS: Normal to inspection, nondistended, normoactive bowel sounds present and non-tender Extremity: COMMON NORMALS: no clubbing, cyanosis or edema, no calf tenderness and no pedal edema Neuro: COMMON NORMALS: patient oriented x3 Psych: COMMON NORMALS: mental status grossly normal Data 08/07/22 00:50 08/07/22 00:50 Micro: Microbiology 08/06/22 22:36 Blood Culture - Preliminary Blood SPECIMEN COLLECTED 08/06/22 22:34 Blood Culture - Preliminary Blood SPECIMEN COLLECTED A&P Assessment and plan (1) NSTEMI (non-ST elevated myocardial infarction): Currently chest pain-free, 1 episode of chest pain in the a.m., status post stenting to LAD Cardiac echocardiogram LV systolic function is normal with EF of 55-60% ?Grade 1 diastolic dysfunction ?Trace tricuspid regurgitation ?Compared to prior echocardiogram from 2020, no significant ?changes are noted. Continue aspirin, statin, Plavix, home dose of beta-aldo. Echocardiogram has been ordered. On aspirin, statin, Plavix (2) Coronary artery disease: Post CABG (3) CHF (congestive heart failure), NYHA class I: Last echocardiogram shows EF of 55% with grade 1 diastolic dysfunction. We will follow-up repeat echocardiogram. Currently in no exacerbation. Qualifiers: Congestive heart failure type: systolic Congestive heart failure chronicity: chronic Qualified Code(s): I50.22 - Chronic systolic (congestive) heart failure (4) Hypercholesterolemia: Continue statin, does have hypertriglyceridemia (5) Diabetes: Takes Ozempic at home. Last dose on 08/04. A1c 6.7. Low-dose insulin sliding scale before meals and at bedtime. Carb consistent cardiac diet. Qualifiers: Diabetes mellitus type: type 2 Diabetes mellitus chcf insulin use: without intermediate frame tender use Diabetes mellitus complication status: without complication Qualified Code(s): E11.9 - Type 2 diabetes mellitus without complications (6) Toe pain, left: Cellulitis less likely. Can be secondary to gout but given history of CAD we will have to rule out PAD and ischemia. Arterial duplex. Pending Frequent neurovascular checks. Check uric acid. Within normal limits For now empirically start patient on Zosyn day very low likelihood of cellulitis. Will continue for now Plan Hypertension: Goal blood pressure less than 140/90 mmHg. Continue with home dose of carvedilol, clonidine. Depending on the BMP can restart home dose of valsartan within next 24 hours. Care discussed in detail with RN at bedside. Thank you for involving us in care of Mr. Moffett. We will continue to follow. Attestations Medical Necessity Statement*: Patient requires hospitalization for NSTEMI status post stenting, with diabetes, hyper triglyceridemia, hypercholesterolemia, toe pain potentially cellulitis Diagnoses NSTEMI (non-ST elevated myocardial infarction) I21.4 Coronary artery disease I25.10 CHF (congestive heart failure), NYHA class I I50.22 Congestive heart failure type: systolic Congestive heart failure chronicity: chronic Hypercholesterolemia E78.00 Diabetes E11.9 Diabetes mellitus type: type 2 Diabetes mellitus chcf insulin use: without chcf use Diabetes mellitus complication status: without complication Toe pain, left M79.67
[2022-08-07] MEDS: acetaminophen 325 mg Tablet 650 MG PO (13:58)
[2022-08-07 16:47] LABS: Glucose Point of Care 271 mg/dL (70-110)
[2022-08-07 20:33] LABS: Glucose Point of Care 139 mg/dL (70-110)
--- NOTE | 2022-08-07 23:29 | USCV_ITS ---
Ravi Moffett Age: 57 Gender: M : 1965 Exam Date: 08/07/2022 09:33 Ordering Phys: Amol Harden MD Technologist: Davin Mackenzie [place] [facility] [place]: post cath Risk Factors: Previous Vascular Surgery: RIGHT LEFT BP: 130.0 / 79.00 BP: 130.0/ 72.00 0 0 Waveform Velocity (cm/s) Velocity (cm/s) Waveform Triphasic 106.9 Iliac Prox Triphasic 83.8 Iliac Mid Triphasic 89.3 Iliac Distal Triphasic 81.6 TRAINING DEVELOPMENT DIRECTOR Triphasic 93.7 SFA Prox Triphasic 88.2 SFA Mid Triphasic 106.9 SFA Dist Triphasic 75.0 POP Triphasic 91.5 INSURANCE CLAIMS SUPERVISOR Triphasic 32.0 DPA 1.0 LIZ FINDINGS Resting LIZ 1.0 on the right side. Normal arterial Doppler waveforms and Doppler velocities CONCLUSIONS No evidence of any significant arterial obstruction, based on the above findings. Dr Susan Aquino MD FAC (Electronically Signed) Final Date: 09 August 2022 22:08 S
[2022-08-08] VITALS (17 sets, daily range): BP systolic 128–178; BP diastolic 73–87; PULSE 72–86; RESP 14–25; TEMP 36.6–37.1; O2SAT 91–97
[2022-08-08 03:11] LABS: Basophils # 0.1 10^3/uL (0.0-0.1); Basophils % 0.8 %; Eosinophils # 0.3 10^3/uL (0.0-0.8); Eosinophils % 4.8 %; Hematocrit 41.2 % (42.0-52.0); Hemoglobin 13.6 g/dL (11.7-16.6); Lymphocytes % 15.9 %; Mean Corpuscular Hemoglobin 28.9 pg (28.0-34.0); Mean Corpuscular Volume 87.5 fl (80-94); Mean Platelet Volume 10.3 fL (7.4-10.4); Monocytes # 0.4 10^3/uL (0.2-0.9); Monocytes % 5.8 %; Neutrophils % 72.5 %; Nucleated Red Blood Cells % 0 %; Platelet Count 153 10^3/cmm (130-400); Red Blood Count 4.71 10^6/uL (4.1-5.3); Red Cell Distribution Width 13.7 % (12.1-15.1); White Blood Count 6.2 10^3/uL (4.0-10.0)
[2022-08-08] MEDS: piperacillin-tazobactam 3.375 GM in sodium chloride 0.9% (plus) 50 ML IV (05:44)
[2022-08-08] MEDS: aspirin 81 mg EC Tablet PO (08:36)
[2022-08-08] MEDS: clopidogrel 75 mg Tablet PO (08:37)
[2022-08-08] MEDS: tamsulosin 0.4 mg Capsule PO (08:37)
[2022-08-08] MEDS: zonisamide 100 MG Capsule PO (08:37)
[2022-08-08] MEDS: carvedilol 25 mg Tablet PO (08:37)
[2022-08-08] MEDS: insulin lispro 100 unit/1 mL SUBCUT ×2 (08:47→12:18)
[2022-08-08 08:51] LABS: Glucose Point of Care 147 mg/dL (70-110)
[2022-08-08] MEDS: amlodipine 5 mg Tablet PO (09:31)
--- NOTE | 2022-08-08 12:05 | PM.DCS ---
Discharge Providers Date of Admission: 08/06/22 20:39 Date of Discharge: August 08, 2022 Attending Provider at Admission: Amol Harden MD Attending Provider at Discharge: Lucho Aguilar M.D Primary Care Provider: CARLOZ Mcginnis Diagnoses at Discharge Discharge Diagnosis (1) Coronary artery disease: Status: Acute (2) Left-sided cerebrovascular accident (CVA): Status: Acute (3) Status post ablation of ventricular arrhythmia: Status: Acute (4) CHF (congestive heart failure), NYHA class I: Status: Acute Qualifiers: Congestive heart failure type: systolic Congestive heart failure chronicity: chronic Qualified Code(s): I50.22 - Chronic systolic (congestive) heart failure (5) Diabetes: Status: Acute Qualifiers: Diabetes mellitus type: type 2 Diabetes mellitus terminal makeup operator insulin use: without terminal makeup operator use Diabetes mellitus complication status: without complication Qualified Code(s): E11.9 - Type 2 diabetes mellitus without complications (6) Hypercholesterolemia: Status: Acute (7) Unstable angina: Status: Acute Reason for Visit Reason for Visit: Chest pain Hospital Course Hospital Course Ravi Moffett is a 57 year old male with past medical history of congestive heart failure, diabetes, CAD status post CABG in 2020 with CABG x4 has presented to hospital with 2 hours of severe substernal chest pain.? He says chest pain is on the left side and radiates to the left arm.? After receiving nitro his chest pain has improved somewhat.? EKG changes are dynamic.? Inferior leads with Q waves with borderline ST elevations and ST T wave changes in the anterior leads V1-V3 were noted. geophysical laboratory director was activated because of typical, severe, ongoing symptoms and dynamic EKG changes Patient was admitted to [facility] for NSTEMI, status postcardiac catheterization, showed severe stenosis of MORFIN to LAD anastomosis treated with drug-eluting stent x1, SVG to RCA occluded, SVG to diagonal is patent, [place] left circumflex patent, distal RCA has severe 70% stenosis, remained chest pain-free, discharged on aspirin, statin, Plavix, switch to Coreg, follow-up with cardiology as outpatient For his diabetes and hypertension follow-up with primary care provider as outpatient, for better blood sugar control, better blood pressure control He did have toe pain, possibly cellulitis, also could be gout received antibiotic therapy over clinically proved, discharged on cefdinir., Follow-up with primary care provider as outpatient for consideration of allopurinol Physical Exam Const: COMMON NORMALS: no acute distress and patient oriented x3 Resp: COMMON NORMALS: normal respiratory effort, No retractions, No use of accessory muscles and clear to auscultation bilaterally AUSCULTATION: clear to auscultation bilaterally Cardio: COMMON NORMALS: regular rate, regular rhythm, S1 normal heart sound present and S2 normal heart sound present RATE: regular rate RHYTHM: regular rhythm HEART SOUNDS: S1 normal heart sound present and S2 normal heart sound present GI: COMMON NORMALS: Normal to inspection, nondistended, normoactive bowel sounds present, Soft to palpation and non-tender PALPATION: Yes Soft to palpation Extremity: COMMON NORMALS: capillary refill normal and no pedal edema Neuro: COMMON NORMALS: patient oriented x3 Psych: COMMON NORMALS: mental status grossly normal Discharge Data Studies Completed and Pending Completed Studies During Hospitalization Category Date Time Status XR chest 1V portable [id number] Stat Exams 08/06/22 18:56 [place] [id number] Routine Ultrasound 08/06/22 20:54 Completed CV. 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 Laboratory Results WBC 6.2 10^3/uL (4.0-10.0) 08/08/22 02:52 RBC 4.71 10^6/uL (4.1-5.3) 08/08/22 02:52 Hgb 13.6 g/dL (11.7-16.6) 08/08/22 02:52 Hct 41.2 % (42.0-52.0) L 08/08/22 02:52 MCV 87.5 fl (80-94) 08/08/22 02:52 MCH 28.9 pg (28.0-34.0) 08/08/22 02:52 MCHC 33.0 g/dL (30.0-36.0) 08/08/22 02:52 RDW 13.7 % (12.1-15.1) 08/08/22 02:52 Plt Count 153 10^3/cmm (130-400) 08/08/22 02:52 MPV 10.3 fL (7.4-10.4) 08/08/22 02:52 Neut % (Auto) 72.5 % 08/08/22 02:52 Lymph % (Auto) 15.9 % 08/08/22 02:52 [place] % (Auto) 5.8 % 08/08/22 02:52 Eos % (Auto) 4.8 % 08/08/22 02:52 Baso % (Auto) 0.8 % 08/08/22 02:52 Neut # (Auto) 4.50 10^3/uL (1.8-7.7) 08/08/22 02:52 Lymph # (Auto) 1.0 10^3/uL (0.8-4.8) 08/08/22 02:52 [place] # (Auto) 0.4 10^3/uL (0.2-0.9) 08/08/22 02:52 Eos # (Auto) 0.3 10^3/uL (0.0-0.8) 08/08/22 02:52 Baso # (Auto) 0.1 10^3/uL (0.0-0.1) 08/08/22 02:52 Nucleated RBC % (auto) 0 % 08/08/22 02:52 Nucleated RBCs # 0.0 /100WBC 08/08/22 02:52 APTT 37.9 SECONDS (23.9-36.7) H 08/07/22 00:50 D-Dimer 0.42 ug/mIFEU (0-0.59) 08/06/22 18:54 Sodium 137 mmol/L (136-145) 08/07/22 00:50 Potassium 3.5 mmol/L (3.5-5.1) 08/07/22 00:50 Chloride 101 mmol/L (98-107) 08/07/22 00:50 Carbon Dioxide 26 mmol/L (22-29) 08/07/22 00:50 Anion Gap 13.5 (5-19) 08/07/22 00:50 BUN 8 mg/dL (6-20) 08/07/22 00:50 Creatinine 1.2 mg/dL (0.7-1.2) 08/07/22 00:50 GFR Calculation 62.6 mL/min (90-130) L 08/07/22 00:50 Glucose 168 mg/dL (65-115) H 08/07/22 00:50 POC Glucose 147 mg/dL (70-110) H 08/08/22 08:37 Estimat Average Glucose 146 08/07/22 00:50 Hemoglobin A1c 6.7 % (4.0-6.0) H 08/07/22 00:50 Calculated Osmolality 286 mOsm/kg (285-295) 08/07/22 00:50 Uric Acid 4.5 mg/dL (3.4-7.0) 08/06/22 18:54 Calcium 8.6 mg/dL (8.5-10.5) 08/07/22 00:50 Iron 91 ug/dL (59-158) 08/06/22 18:54 TIBC 351 mcg/dl 08/06/22 18:54 % Saturation 25.9 % (20-50) 08/06/22 18:54 Unsat Iron Binding 260 ug/dL (112-347) 08/06/22 18:54 Total Bilirubin 0.4 mg/dL (0.15-1.2) 08/07/22 00:50 AST 20 U/L (0-40) 08/07/22 00:50 ALT 20 U/L (0-41) 08/07/22 00:50 Alkaline Phosphatase 59 U/L (40-130) 08/07/22 00:50 Troponin T Baseline 19 ng/L (0-15) H 08/06/22 18:54 Troponin T 120 Minute 18.08 ng/L (0-15) H 08/06/22 22:36 Delta Troponin T -0.92 ABS# (0-10) L 08/06/22 22:36 Troponin T Hi Sens 6Hr 20.99 ng/L (0-15) H 08/07/22 00:50 Troponin T Hi Sens 6Hr Delta 1.99 ng/L (0-12) 02/21/23 00:50 NT-Pro-B Natriuret Pep 248 pg/mL (0-125) H 08/06/22 18:54 Total Protein 5.7 g/dL (6.6-8.7) L 08/07/22 00:50 Albumin 3.7 g/dL (3.5-5.2) 08/07/22 00:50 Globulin 2.0 g/dL (1.3-4.6) 08/07/22 00:50 Triglycerides 270 mg/dL (0-150) H 08/07/22 00:50 Cholesterol 131 mg/dL (0-200) 08/07/22 00:50 LDL Cholesterol, Calc 50 mg/dL (50-129) 08/07/22 00:50 Total VLDL Cholesterol 54 mg/dL (0-30) H 08/07/22 00:50 HDL Cholesterol 27 mg/dL (60-100) L 08/07/22 00:50 Cholesterol/HDL Ratio 4.85 mg/dL (1.0-5.00) 08/07/22 00:50 Lipase 42 U/L (13-60) 08/06/22 18:54 Vitamin B12 499 pg/mL (232-1245) 08/06/22 18:54 Folate 6.9 ng/mL (4.5-32.2) 08/06/22 18:54 TSH 1.54 uIU/mL (0.27-4.20) 08/06/22 18:54 Coronavirus 229E (PCR) Not detected (NOT DETECT) 08/07/22 01:30 Influenza Type A Ag negative (Negative) 08/07/22 01:30 Influenza Type B Ag negative (Negative) 08/07/22 01:30 SARS-CoV-2 (PCR) Not detected (NOT DETECT) 08/07/22 01:30 Vitals Last Vital Signs Temp 98.5 F 08/08/22 08:00 Pulse 83 08/08/22 10:00 Resp 20 H 08/08/22 10:00 BP 144/87 08/08/22 10:00 Pulse Ox 96 08/08/22 10:00 O2 Del Method 08/08/22 07:46 Discharge Plan Discharge Patient Disposition: Home Condition: Stable Prescriptions: New carvedilol 25 mg Tablet 25 mg PO BID 30 Days Qty: 60 0RF cefdinir 300 mg capsule 300 mg PO BID 5 Days Qty: 10 0RF nitroglycerin 0.4 mg Tablet, Sublingual 0.4 mg sublingual Q5M PRN (Reason: Chest Pain) 30 Days Qty: 30 0RF Rx Instructions: donot take with sildenafil tamsulosin 0.4 mg Capsule 0.4 mg PO DAILY 30 Days Qty: 30 0RF Continued sildenafil 100 mg tablet 100 mg PO DAILY PRN (Reason: sexual activity) Qty: 20 12RF Rx Instructions: 1 hour before intercourse on empty stomach. NO NITROGLYCERIN! Proair Digihaler 90 mcg/actuation aero powdr breath act w/sensor 2 inh INHALATION QID clonidine HCl 0.1 mg tablet 0.1 mg PO BID 90 Days Qty: 180 3RF furosemide 20 mg tablet 20 mg PO DAILY PRN (Reason: Edema) losartan 100 mg tablet 100 mg PO DAILY glipizide 5 mg tablet 2.5 mg PO DAILY fenofibrate nanocrystallized 145 mg tablet 145 mg PO DAILY Ozempic 0.25 mg or 0.5 mg(2 mg/1.5 mL) pen injector 0.5 mg SUBCUT Q7D Rx Instructions: on saturday atorvastatin 40 mg tablet 40 mg PO .HS 90 Days Qty: 30 3RF clopidogrel 75 mg tablet 75 mg PO DAILY 30 Days Qty: 30 0RF aspirin 81 mg Tablet,Delayed Release (Dr/Ec) 81 mg PO DAILY 30 Days Qty: 30 0RF Discontinued metoprolol tartrate 25 mg tablet 25 mg PO DAILY Discharge Orders: Discharge Order (Routine); Ordered 08/08/22 Ordered By: Eliseo Rocha Referrals: Arina Joseph FNP [Primary Care Provider] - Discharge Diet: Cardiac Discharge Activity: Resume usual activity Patient Instructions: Opioid Safety Activity Restrictions/Additional Instructions: - If you have recurrent chest pain please go to emergency room -Please follow-up with primary care provider in 1 week -Discussed with primary care provider a possible trying Jardiance -Need to monitor blood pressure closely, need to have blood her blood pressure control -Follow-up with cardiology in 1 week -Please do not take sildenafil with nitroglycerin as this is associate with increased risk of morbidity and mortality -Take aspirin, statin, Plavix, Coreg as prescribed -Do not stop taking aspirin, or Plavix -If you develop bloody or black stools go to the emergency room Discharge Attestations Time Spent in Discharge Care*: greater than 30 min Quality Metrics Clinical Quality Measures [ Acute Myocardial Infaction { Clinical Trial Participant: No; Contraindication to aspirin: None; Aspirin prescribed; Contraindication to statin: None; Statin prescribed; Contraindication to PCI: None; PCI performed;}] Coding Level of Care Code 16588 Total time (in minutes) for Discharge: 40 Diagnoses Coronary artery disease I25.10 Left-sided cerebrovascular accident (CVA) I63.9 Status post ablation of ventricular arrhythmia Z98.890; Z86.79 CHF (congestive heart failure), NYHA class I I50.22 Congestive heart failure type: systolic Congestive heart failure chronicity: chronic Diabetes E11.9 Diabetes mellitus type: type 2 Diabetes mellitus skilled nursing insulin use: without skilled nursing use Diabetes mellitus complication status: without complication Hypercholesterolemia E78.00 Unstable angina I20.0
--- NOTE | 2022-08-08 14:16 | PC.NURSE ---
Discharged patient. Medications sent to preferred pharmacy. IVs removed. New appointment education, activity education, and new medication education provided. Stent information card given to patient. patient signature form signed.
[2022-08-08 20:15] LABS: Glucose Point of Care 308 mg/dL (70-110)
--- NOTE | 2022-08-12 14:08 | P.PN_ITS ---
Subjective Subjective: (Please consider documentation for 08/08/2022, as note missed) Patient is doing well. Not chest pain. Blood pressure is controlled. Vitals/I&O/Wt Last Vital Signs Temp 97.8 F 08/08/22 13:10 Pulse 84 08/08/22 13:10 Resp 16 08/08/22 13:10 BP 128/73 08/08/22 14:00 Pulse Ox 95 08/08/22 13:10 O2 Del Method 08/08/22 07:46 Physical Exam 2 Narrative: GENERAL: Patient is alert, awake and oriented x3. [] NECK: No jugular vein distension. [] HEENT: No cyanosis. No icterus. No pallor. [] HEART: Regular S1 and S2. No murmur, rub or gallop. [] LUNGS: Clear to auscultate bilaterally. [] CENTRAL NERVOUS SYSTEM: Grossly nonfocal. [] EXTREMITIES: Lower extremities with no edema. Left foot has redness and swelling on the dorsum. Data 08/08/22 02:52 08/07/22 00:50 Micro: Microbiology 08/06/22 22:36 Blood Culture - Final Blood NO GROWTH AFTER 5 DAYS 08/06/22 22:34 Blood Culture - Final Blood NO GROWTH AFTER 5 DAYS A&P Assessment and plan (1) Coronary artery disease: (2) Left-sided cerebrovascular accident (CVA): (3) Status post ablation of ventricular arrhythmia: (4) CHF (congestive heart failure), NYHA class I: Qualifiers: Congestive heart failure type: systolic Congestive heart failure chronicity: chronic Qualified Code(s): I50.22 - Chronic systolic (congestive) heart failure (5) Diabetes: Qualifiers: Diabetes mellitus type: type 2 Diabetes mellitus termite technician insulin use: without assisted use Diabetes mellitus complication status: without complication Qualified Code(s): E11.9 - Type 2 diabetes mellitus without complications (6) Hypercholesterolemia: (7) Unstable angina: Plan Patient is chest pain-free. Blood pressure is now controlled. He will need staged PCI of distal RCA as outpatient. Continue aspirin and Plavix. ECHO shows normal LV systolic function is normal Hospitalist team assisting with treatment of medical issues. Patient is stable to be discharged from cardiology standpoint. Please call with questions Attestations Medical Necessity Statement*: Care expected to cross 2 midnights. Coding Level of Care Code Acute Code for Chg Fwd Diagnoses Coronary artery disease I25.10 Left-sided cerebrovascular accident (CVA) I63.9 Status post ablation of ventricular arrhythmia Z98.890; Z86.79 CHF (congestive heart failure), NYHA class I I50.22 Congestive heart failure type: systolic Congestive heart failure chronicity: chronic Diabetes E11.9 Diabetes mellitus type: type 2 Diabetes mellitus termite technician insulin use: without assisted use Diabetes mellitus complication status: without complication Hypercholesterolemia E78.00 Unstable angina I20.0
== END 2022-08-08 14:17 | disposition home or self-care (01) | DRG 247 ==
LOC: ER 19:20 → ICU 21:06
PROVIDERS: Admitting Provider Student in an Organized Health Care Education/Training Program; Emergency Provider Emergency Medicine; PCP Nurse Practitioner Family; Visit Provider Internal Medicine
PROC: 027034Z Dilation of Coronary Artery, One Artery with Drug-eluting Intraluminal Device, Percutaneous Approach (ICD-10-PCS; principal; 2022-08-06 19:00)
PROC: 027034Z Dilation of Coronary Artery, One Artery with Drug-eluting Intraluminal Device, Percutaneous Approach (ICD-10-PCS; 2022-08-06 19:00)
DX: I21.4 Non-ST elevation (NSTEMI) myocardial infarction (principal); I50.22 Chronic systolic (congestive) heart failure; I11.0 Hypertensive heart disease with heart failure; I25.110 Atherosclerotic heart disease of native coronary artery with unstable angina pectoris; I25.710 Atherosclerosis of autologous vein coronary artery bypass graft(s) with unstable angina pectoris; I25.720 Atherosclerosis of autologous artery coronary artery bypass graft(s) with unstable angina pectoris; E11.9 Type 2 diabetes mellitus without complications; E78.00 Pure hypercholesterolemia, unspecified; E78.1 Pure hyperglyceridemia; G47.30 Sleep apnea, unspecified; L03.032 Cellulitis of left toe; M10.9 Gout, unspecified; Z95.1 Presence of aortocoronary bypass graft; Z79.82 Long term (current) use of aspirin; Z79.02 Long term (current) use of antithrombotics/antiplatelets; Z87.891 Personal history of nicotine dependence; Z79.84 Long term (current) use of oral hypoglycemic drugs; Z79.85 Long-term (current) use of injectable non-insulin antidiabetic drugs
CPT/HCPCS: 36415; 36416; 71045; 80053; 80061; 82607; 82746; 82962; 83036; 83540; 83550; 83690; 83880; 84443; 84484; 84550; 85025; 85347; 85378; 85730; 87040; 87635; 87641; 87804; 93005; 93306; 93455; 93926; 93970; 96372; 96374; 99152; 99153; 99285; C1725; C1769; C1874; C1887; C1894; C9600; J1644; J1815; J2250; J2543; J3010; J3490; J7030; Q9967

== ENCOUNTER → 2022-08-16 08:39 | Outpatient (BNVA) | payer MEDICARE, MEDICAID, SELFPAY | PROVIDERS: PCP Nurse Practitioner Family; Visit Provider Nurse Practitioner Family | DX: I25.10 Atherosclerotic heart disease of native coronary artery without angina pectoris (principal); I11.0 Hypertensive heart disease with heart failure; I50.22 Chronic systolic (congestive) heart failure; Z87.891 Personal history of nicotine dependence; Z79.82 Long term (current) use of aspirin | CPT/HCPCS: 36415; 80048; 99214 ==